=== PATIENT | male | born 1960 | race Caucasian/White ===

== ENCOUNTER 2022-01-17 13:17 | Inpatient (IN) | payer OTHER, SELFPAY ==
[2022-01-17] VITALS (8 sets, daily range): BP systolic 139–170; BP diastolic 65–89; PULSE 78–99; RESP 18–20; TEMP 36.6–37.1; O2SAT 91–94; BMI 27.9; BMI 28.4
--- NOTE | 2022-01-17 14:06 | RAD_ITS ---
STUDY: X-RAY CHEST REASON FOR EXAM: Male, 61 years old. Cough. Recent diagnosis of Covid. TECHNIQUE: Single AP portable view of the chest. COMPARISON: None. FINDINGS: EKG electrodes are seen. Bilateral pulmonary infiltrates in a preferential peripheral distribution worse in the left hemithorax. This is suggestive of pneumonitis associated with Covid.There is no demonstrated pleural abnormality. Normal size heart. Normal mediastinum and behzad. Normal visualized pulmonary arteries. Normal visualized aortic arch and descending thoracic aorta. There are diffuse degenerative changes of the visualized thoracic spine. Normal visualized ribs, clavicles, and shoulders. There is no demonstrated abnormality of the visualized soft tissue structures of the upper abdomen. RAD/Chest 1 View (Portable) IMPRESSION: Bilateral pulmonary infiltrates in the preferential peripheral distribution worse in the left hemithorax. This is in keeping with pneumonitis associated with Covid. Electronically Signed: Osman Parker MD at 15:17 EDT ,
--- NOTE | 2022-01-17 14:06 | CT_ITS ---
STUDY: CTA CHEST REASON FOR EXAM: Male, 61 years old. Respiratory failure RADIATION DOSAGE (If Supplied By Facility): CTDIvol = ( 11.68 ) mGy, DLP = ( 510.74 ) mGycm TECHNIQUE: The examination was performed with the intravenous administration of IV 100mL Isovue-370. Post-processing of the angiographic images was performed, with multiplanar reformation and 3D reconstruction. Individualized dose optimization techniques were used for this CT. COMPARISON: Comparison is made with prior chest radiograph done earlier today. FINDINGS: Multiple bilateral pulmonary emboli worse in the right lower lobe. Normal thoracic aorta and visualized great vessels. There is no demonstrated aortic dissection. There are calcifications of the coronary arteries. There are visualized mediastinal lymph nodes, which are within normal size limits, and with normal morphology. Enlargement of the bilateral hilar lymph nodes more prominent on the right side. Normal visualized trachea and bronchi. The lungs are well expanded. Diffuse bilateral pulmonary infiltrates involving both upper and lower lobes and both lungs in a preferential peripheral distribution. This is suggestive of pneumonitis associated with Covid. Normal pleura. Normal chest wall structures. Normal osseous structures. Moderate size hiatal hernia. CT/CTA Chest W/WO Contrast IMPRESSION: Diffuse bilateral pulmonary emboli worse in the right lower lobe. Diffuse bilateral pulmonary infiltrates in the preferential peripheral distribution suggestive of Covid pneumonitis. Electronically Signed: Osman Parker MD at 15:39 EDT ,
--- NOTE | 2022-01-17 14:22 | EX.ED.DYSGE1 ---
HPI History of Present Illness Chief Complaint: Fatigue Narrative Narrative: 61-year-old male presenting with chief complaint of fatigue. He states he had COVID-19 a couple of weeks ago in [place] where he lives. He states he was on the mend and came to visit family for January 16. The rest of his family kept getting better but he has been having fatigue. His fevers have resolved. He does not have body aches. He states that yesterday he felt great and ate well and then today has been rundown again. He is denying chest pain but does have some shortness of breath. No nausea or vomiting. He had an episode of diarrhea yesterday. He states he is hydrating enough there is making plenty of urine. Patient denies any leg pain or calf pain. No history of DVT/PE. [facility] Medical History Elevated triglycerides with high cholesterol HTN (hypertension) Seasonal allergies Home Medications cetirizine 10 mg tablet 10 mg PO DAILY allergies 01/17/22 [History Last Taken 01/17/22] fenofibrate 54 mg tablet 54 mg PO DAILY cholesterol 01/17/22 [History Last Taken 01/17/22] lisinopril 10 mg tablet 10 mg PO DAILY bp 01/17/22 [History Last Taken 01/17/22] Allergy/AdvReac Type Severity Reaction Status Date / Time erythromycin base Allergy Hives Verified 01/17/22 13:21 SEASONAL Allergy Rash Uncoded 01/17/22 13:21 Social History (Updated 01/17/22 @ 16:[address] Edy Mcrae DO) Smoking Status: Never smoker alcohol intake: current alcohol intake frequency: holidays/special occasions only substance use type: does not use ROS ROS ED Constitutional Constitutional ED: Denies chills or fever(s) Eyes Eyes: Denies change in vision ENT ENT ED: Denies rhinorrhea Cardiovascular Cardiovascular: Denies chest pain Respiratory/Chest Respiratory/Chest: Reports cough, dyspnea and dyspnea on exertion Gastrointestinal Gastrointestinal: Reports diarrhea; Denies abdominal pain or constipation Genitourinary Genitourinary ED: Denies dysuria or hematuria Musculoskeletal Musculoskeletal: Denies arthralgias Integumentary Denies Abrasions or rash Neurologic Neurologic: Denies headache(s) Psychiatric Psychiatric: Denies anxiety or depression EXAM Physical Exam Const Vital Signs: 01/17/22 13:18 01/17/22 13:54 01/17/22 13:54 Temperature 98 F Temperature Source Temporal Pulse Rate 99 Respiratory Rate 20 H Respiratory Effort Short of Breath Blood Pressure 170/89 H Blood Pressure Mean 116 Pulse Ox 91 Oxygen Delivery Method Room Air Room Air Oxygen Flow Rate (L/min) 01/17/22 15:54 01/17/22 16:02 Temperature 98 F Temperature Source Temporal Pulse Rate 94 94 Respiratory Rate 20 H Respiratory Effort Blood Pressure 150/84 H 150/84 H Blood Pressure Mean 106 Pulse Ox 92 92 Oxygen Delivery Method Nasal Cannula Nasal Cannula Oxygen Flow Rate (L/min) 4 4 Positive well nourished General Appearance ED: Negative for pallor HEENT Reports moist mucous membranes Eyes PERRL and EOMs intact bilaterally General Eye ED: Negative for pale conjunctiva or scleral icterus Chest Wall inspection of chest normal Resp Resp Narrative: Minimally tachypneic. Able to speak in full sentences. Auscultation: rales bilateral 1/3 way up Cardio regular rate and regular rhythm GI normal to inspection, nondistended, normoactive bowel sounds Extremity normal to inspection Neuro oriented x3 and CN's II-XII intact bilaterally Sensorium / Orientation: alert and orientation impaired Motor Exam: strength 5/5 throughout Psych mental status grossly normal Skin no rashes or lesions noted General Skin Exam: Negative for jaundice or pallor MDM MDM MDM Narrative Medical decision making narrative: Patient presenting with fatigue. He states he initially recovered from COVID-19 and is now steadily gotten worse. He is denying any chest pain but is having shortness of breath. Its noted that he is about 86% while talking to me in the room. He states that he is supposed to fly home tomorrow but just feels rundown. He states he had COVID a couple of weeks ago and initially recovered and now is not feeling as well. He is ambulated with pulse ox and desats to 75% and is very dyspneic. He was placed on oxygen after this. EKG on my interpretation shows normal sinus rhythm with a ventricular rate of 89 bpm without sign of ischemic change. CBC shows a slight leukocytosis of 12.9. Hemoglobin stable at 14. Renal function and electrolytes within normal limits. AST 125, ALT 128, alkaline phosphatase 270. This is likely due to his COVID-19 infection. High-sensitivity troponin is 18. Urinalysis negative for infection or urine ketones. Procalcitonin negative. Chest x-ray my interpretation shows bilateral pulmonary infiltrates consistent with COVID-19 pneumonitis. Due to recent travel from [place] and formerly [facility] COVID-19 infection I did obtain a CTA of the chest and this does show bilateral pulmonary emboli as well as pretty extensive COVID pneumonitis. Patient was treated with IV fluids and dexamethasone in the ED. Given that he is hypoxic with ambulation and has multiple PEs he will need to be admitted. I spoke with the hospitalist and the patient is transferred to the floor and stable condition. Impression: 1. COVID-19 pneumonitis 2. Hypoxic respiratory failure 3. Leukocytosis 4. Elevated LFTs 5. Bilateral pulmonary emboli Lab Data Attestation: I reviewed the patient's lab results. Labs: Laboratory Results - last 24 hr 01/17/22 01/17/22 01/17/22 14:25 14:32 14:32 WBC 12.9 H RBC 4.56 L Hgb 14.0 Hct 41.7 MCV 91.4 MCH 30.7 MCHC 33.6 RDW Std Deviation 45.4 H RDW Coeff of Alexandro 13.5 Plt Count 353 MPV 9.4 Immature Gran % (Auto) 0.900 Neut % (Auto) 89.4 H Lymph % (Auto) 5.4 L [place] % (Auto) 3.9 Eos % (Auto) 0.2 Baso % (Auto) 0.2 Absolute Neuts (auto) 11.5 H Absolute Lymphs (auto) 0.69 L Nucleated RBC % 0 Sodium 137 Potassium 4.1 Chloride 103 Carbon Dioxide 27.0 Anion Gap 7 BUN 5 L Creatinine 0.74 Estim Creat Clear Calc 108.24 Est GFR (MDRD) Af Amer 137 Est GFR (MDRD) Non-Af 114 BUN/Creatinine Ratio 6.7 L Glucose 102 Calcium 8.7 Total Bilirubin 0.60 AST 125 H ALT 128 H Alkaline Phosphatase 270 H Troponin I High Sens 18 Total Protein 7.7 Albumin 3.0 L Globulin 4.7 H Albumin/Globulin Ratio 0.6 L Procalcitonin Urine Color Straw Urine Clarity Clear Urine pH 7.0 Ur Specific [place] 1.005 Urine Protein Negative Urine Glucose (UA) Normal Urine Ketones Negative Urine Occult Blood 10 H Urine Nitrite Negative Urine Bilirubin Negative Urine Urobilinogen Normal Ur Leukocyte Esterase Negative Urine RBC 0-5 SEEN Urine WBC 0 SEEN Ur Squamous Epith Cells 0 SEEN Urine Bacteria 0 SEEN Urine Mucus 0 SEEN 01/17/22 14:32 WBC RBC Hgb Hct MCV MCH MCHC RDW Std Deviation RDW Coeff of Alexandro Plt Count MPV Immature Gran % (Auto) Neut % (Auto) Lymph % (Auto) [place] % (Auto) Eos % (Auto) Baso % (Auto) Absolute Neuts (auto) Absolute Lymphs (auto) Nucleated RBC % Sodium Potassium Chloride Carbon Dioxide Anion Gap BUN Creatinine Estim Creat Clear Calc Est GFR (MDRD) Af Amer Est GFR (MDRD) Non-Af BUN/Creatinine Ratio Glucose Calcium Total Bilirubin AST ALT Alkaline Phosphatase Troponin I High Sens Total Protein Albumin Globulin Albumin/Globulin Ratio Procalcitonin 0.05 Urine Color Urine Clarity Urine pH Ur Specific [place] Urine Protein Urine Glucose (UA) Urine Ketones Urine Occult Blood Urine Nitrite Urine Bilirubin Urine Urobilinogen Ur Leukocyte Esterase Urine RBC Urine WBC Ur Squamous Epith Cells Urine Bacteria Urine Mucus Radiography Diagnostic Testing: Clinical Impression(s) from Imaging Studies Chest CTA 01/17/22 14:06 IMPRESSION: Diffuse bilateral pulmonary emboli worse in the right lower lobe. Diffuse bilateral pulmonary infiltrates in the preferential peripheral distribution suggestive of Covid pneumonitis. Electronically Signed: Osman Parker MD at 15:39 EDT , Chest X-Ray 01/17/22 14:06 IMPRESSION: Bilateral pulmonary infiltrates in the preferential peripheral distribution worse in the left hemithorax. This is in keeping with pneumonitis associated with Covid. Electronically Signed: Osman Parker MD at 15:17 EDT , Discharge Plan Triage Chief Complaint: Fatigue ED Provider: Fei Stallworth Dx/Rx/DC Orders Primary Care Provider: JAISON HAYWOOD
[2022-01-17 14:37] LABS: Bacteria 0 SEEN /hpf (None Seen); Mucous, Urine 0 SEEN /hpf (<or=2+); Squamous Epithelial Cells - UA 0 SEEN /hpf (0-5); White Blood Cells 0 SEEN /hpf (0-5)
[2022-01-17 14:39] LABS: Absolute Lymphocyte Count 0.69 X10^3/uL (0.83-4.51); Absolute Neutrophil Count 11.5 X10^3/uL (2.0-7.7); Basophil# 0.03 X10^3/uL; Basophil% 0.2 % (0-1); Eosinophil# 0.03 X10^3/uL; Eosinophils% 0.2 % (0-5); Hematocrit 41.7 % (40-54); Lymphocyte # 0.69 X10^3/ul (0.83-4.51); Lymphocyte % 5.4 % (19-41); Mean Corp Hgb Conc 33.6 g/dL (32-36); Mean Corpuscular Hgb 30.7 pg (27.0-32.0); Mean Corpuscular Volume 91.4 fL (80-94); Mean Platelet Vol. 9.4 fl (6.2-12.0); Monocyte% 3.9 % (0-10); NRBC Flagged by Analyzer 0 % (0-5); Neutrophil # 11.52 X10^3/uL (2.7-7.7); Neutrophil % 89.4 % (47-70); Platelet Count 353 K/mm3 (150-450); RBC Distribution Width CV 13.5 % (11.6-14.6); RBC Distribution Width SD 45.4 fl (35.1-43.9); Red Blood Count 4.56 M/mm3 (4.6-6.2); White Blood Count 12.9 K/mm3 (4.4-11.0)
[2022-01-17] MEDS: dexAMETHasone 10 MG/ML Vial 6 MG IV (14:41)
[2022-01-17 14:47] LABS: Color, Urine Straw (Yellow); Glucose, Dipstick Normal (Normal); Ketone-Dipstick Negative (Negative); Leukocyte Esterase-Dipstick Negative /ul (Negative); Nitrite-Dipstick Negative (Negative); Occult Blood-Urine 10 /ul (Negative); Protein-Dipstick Negative (Negative); Specific Gravity, Urine 1.005 (1.002-1.030); Urine Bilirubin Dipstick Negative (Negative); Urine Clarity Clear (Clear); Urine Urobilinogen Normal (Normal)
[2022-01-17 14:55] LABS: Red Blood Cells-Urine 0-5 SEEN /hpf (0-5)
[2022-01-17 14:58] LABS: ALB/GLOB Ratio 0.6 RATIO (0.9-2.4); AST(SGOT) 125 U/L (15-37); Alanine Aminotransfer ALT/SGPT 128 U/L (16-61); Alkaline Phosphatase 270 U/L (45-117); Anion Gap 7 (5-15); BUN 5 mg/dL (7-18); BUN/Creat Ratio 6.7 RATIO (10-20); Calcium,Total 8.7 mg/dL (8.5-10.1); Chloride 103 mmol/L (98-107); Creatinine, Serum 0.74 mg/dL (0.70-1.30); EST Glomerular Filtration Rate 114 mL/min (>60); Est Glom Filt Rate - Afr Amer 137 mL/min (>60); Estimated Creatinine Clearance 108.24 ml/min; Globulin 4.7 g/dL (2.2-4.2); Glucose 102 mg/dL (74-106); Potassium 4.1 mmol/L (3.5-5.1); Protein, Total 7.7 g/dL (6.4-8.2); Sodium Level 137 mmol/L (136-145); Troponin-I HS 18 pg/mL (3.0-78.0)
[2022-01-17 15:27] LABS: Procalcitonin 0.05 ng/mL (0.00-0.09)
--- NOTE | 2022-01-17 16:32 | HP.PCM.HOS_ITS ---
HPI - General General Date of Admission: 01/17/22 Date of Service: 01/17/22 Chief Complaint: shortness of breath HPI Narrative JANEL MILLER, is a 61 M who presents with shortness of breath. Patient had developed COVID-19 on January 04. [place] fine and then came to [place] to visit family in the [place] area. But patient has steadily become more short of breath. Patient was able to help out around the house but today was very short of breath and unable to stand. She presented to the emergency room where his pulse ox has been okay but when he is got up to ambulate and dropped down to 75%. Patient had a CT angiogram of the chest that showed bilateral pulmonary infiltrates consistent with COVID-19 as well as bilateral pulmonary emboli. Patient is unvaccinated for COVID-19. Patient's daughter and granddaughter both had COVID-19 around the same time he did in both came on his trip to [place] from [place] they have both been vaccinated and are planning on returning to [place] in the near future. [facility] Medical History Elevated triglycerides with high cholesterol HTN (hypertension) Seasonal allergies Home Medications cetirizine 10 mg tablet 10 mg PO DAILY allergies 01/17/22 [History Last Taken 01/17/22] fenofibrate 54 mg tablet 54 mg PO DAILY cholesterol 01/17/22 [History Last Taken 01/17/22] lisinopril 10 mg tablet 10 mg PO DAILY bp 01/17/22 [History Last Taken 01/17/22] Allergy/AdvReac Type Severity Reaction Status Date / Time erythromycin base Allergy Hives Verified 01/17/22 13:21 SEASONAL Allergy Rash Uncoded 01/17/22 13:21 Social History (Updated 01/17/22 @ 16:[address] Eyd Mcrae DO) Smoking Status: Never smoker alcohol intake: current alcohol intake frequency: holidays/special occasions only substance use type: does not use ROS ROS Narrative Decreased smell but taste has been unchanged. No chills. Did have some transient diarrhea but that is resolved. All review of systems were negative e xcept as mentioned above in the history of present illness and the other review of systems. Vital Signs Vital Signs Vital Signs: 01/17/22 13:18 01/17/22 13:54 01/17/22 13:54 Temperature 36.6 C Temperature Source Temporal Pulse Rate 99 Respiratory Rate 20 H Respiratory Effort Short of Breath Blood Pressure 170/89 H Blood Pressure Mean 116 Pulse Ox 91 Oxygen Delivery Method Room Air Room Air Oxygen Flow Rate (L/min) 01/17/22 15:54 01/17/22 16:02 Temperature 36.6 C Temperature Source Temporal Pulse Rate 94 94 Respiratory Rate 20 H Respiratory Effort Blood Pressure 150/84 H 150/84 H Blood Pressure Mean 106 Pulse Ox 92 92 Oxygen Delivery Method Nasal Cannula Nasal Cannula Oxygen Flow Rate (L/min) 4 4 Weight Weight: 88.451 kg Body Mass Index (BMI) 27.9 Physical Exam Const alert and no apparent distress HEENT normocephalic, head/scalp atraumatic and hearing grossly normal bilaterally Resp normal respiratory effort and no retractions Resp Narrative: Bibasilar crackles Cardio regular rate, regular rhythm, S1 normal heart sound and S2 normal heart sound GI normal to inspection, nondistended, normoactive bowel sounds, soft to palpation, non-tender and non-distended Extremity normal to inspection and no clubbing, cyanosis or edema Neuro oriented x3 Sensorium / Orientation: awake and alert Psych affect normal Results Lab / Micro Data Attestation: I reviewed the patient's lab results. Result Diagrams: 01/17/22 14:32 01/17/22 14:32 Labs: Laboratory Results - last 24 hr 01/17/22 14:25: Urine Color Straw, Urine Clarity Clear, Urine pH 7.0, Ur Specific [place] 1.005, Urine Protein Negative, Urine Glucose (UA) Normal, Urine Ketones Negative, Urine Occult Blood 10 H, Urine Nitrite Negative, Urine Bilirubin Negative, Urine Urobilinogen Normal, Ur Leukocyte Esterase Negative, Urine RBC 0-5 SEEN, Urine WBC 0 SEEN, Ur Squamous Epith Cells 0 SEEN, Urine Ba cteria 0 SEEN, Urine Mucus 0 SEEN 01/17/22 14:32: WBC 12.9 H, RBC 4.56 L, Hgb 14.0, Hct 41.7, MCV 91.4, MCH 30.7, MCHC 33.6, RDW Std Deviation 45.4 H, RDW Coeff of Alexandro 13.5, Plt Count 353, MPV 9.4, Immature Gran % (Auto) 0.900, Neut % (Auto) 89.4 H, Lymph % (Auto) 5.4 L, [place] % (Auto) 3.9, Eos % (Auto) 0.2, Baso % (Auto) 0.2, Absolute Neuts (auto) 11.5 H, Absolute Lymphs (auto) 0.69 L, Nucleated RBC % 0 01/17/22 14:32: Sodium 137, Potassium 4.1, Chloride 103, Carbon Dioxide 27.0, Anion Gap 7, BUN 5 L, Creatinine 0.74, Estim Creat Clear Calc 108.24, Est GFR (MDRD) Af Amer 137, Est GFR (MDRD) Non-Af 114, BUN/Creatinine Ratio 6.7 L, Glucose 102, Calcium 8.7, Total Bilirubin 0.60, AST 125 H, ALT 128 H, Alkaline Phosphatase 270 H, Troponin I High Sens 18, Total Protein 7.7, Albumin 3.0 L, Globulin 4.7 H, Albumin/Globulin Ratio 0.6 L 01/17/22 14:32: Procalcitonin 0.05 Micro: Microbiology 01/17/22 14:20 Nasal Secretion SARS-CoV-2 Antigen (Rapid) - Final Radiology Impression Chest CTA 01/17/22 14:06 IMPRESSION: Diffuse bilateral pulmonary emboli worse in the right lower lobe. Diffuse bilateral pulmonary infiltrates in the preferential peripheral distribution suggestive of Covid pneumonitis. Electronically Signed: Osman Parker MD at 15:39 EDT , Chest X-Ray 01/17/22 14:06 IMPRESSION: Bilateral pulmonary infiltrates in the preferential peripheral distribution worse in the left hemithorax. This is in keeping with pneumonitis associated with Covid. Electronically Signed: Osman Parker MD at 15:17 EDT , Assessment & Plan Assessment/Plan (1) Acute respiratory failure with hypoxia: PLAN: Secondary to COVID-19 and pulmonary emboli Currently patient is stable on nasal cannula. Given the history of COVID-19 and being unvaccinated is unclear to me if this is the worse or if he may continue to worsen. I told the patient and his daughter over the phone and that we would monitor him in the hospital for the next couple days to ensure that he is improving. The patient can remain stable and we can consider discharging him home. The complicating factor is that [place]. He does have family that he can stay with so it may be advisable for him to return home with family particular if he requires oxygen. (2) COVID-19: PLAN: Onset is January 04 The patient is natural history is consistent with what we are seeing with the delta variant in unvaccinated patients. And this was explained to the patient. Patient is out of the window for remdesivir Continue with dexamethasone If patient worsens, consider infectious disease consult to see if we can use tocilizumab. I did speak with pharmacy and we do have several vials. (3) Pulmonary emboli: PLAN: Most likely due to COVID-19 but his recent travel may also be contributing factor. He does not smoke or take any hormone therapy. Start him on apixaban. I would anticipate 6-month course of anticoagulation. PLAN: Plan VTE prophylaxis not indicated as he is already on anticoagulation. Case discussed with the patient's daughter over the phone. Charges/Coding Visit Charges Inpatient E&M: 34244 Init Hosp L3
--- NOTE | 2022-01-17 16:33 | EKG12_ITS ---
Test Reason : SOB Blood Pressure : / mmHG Vent. Rate : 089 BPM Atrial Rate : 089 BPM P-R Int : 152 ms QRS Dur : 098 ms QT Int : 342 ms P-R-T Axes : 015 -07 -12 degrees QTc Int : 416 ms Normal sinus rhythm Normal ECG Confirmed by HERMILA HORTA, KAYLYNN ([id number]), commercial production editor TANYA MOORE ([id number]) on 01/19/2022 9:04:11 AM Referred By: SYLVAIN Confirmed By:KAYLYNN CLEANING MD
--- NOTE | 2022-01-17 18:00 | ECHOD_ITS ---
Reason For Study: Bilateral PE Procedure This was a 2D Doppler, Color Flow transthoracic echocardiogram. The exam was of adequate technical quality. Exam performed portable in patient room. The exam was abbreviated due to the COVID 19 protocol. Left Ventricle Normal LV size. Left ventricular systolic function is normal. The estimated ejection fraction is 65 %. Unable to assess diastolic dysfunction. No regional wall motion abnormalities noted. Right Ventricle Normal RV size. Normal systolic function. Atria The left atrium is mildly enlarged. Normal right atrium. No doppler evidence for ASD. Mitral Valve There is mild mitral annular calcification. Normal mitral valve. Trivial mitral valve insufficiency. Tricuspid Valve Normal tricuspid valve. Mild tricuspid valve insufficiency. Right ventricular systolic pressure estimated to be 50 mmHg. Aortic Valve Trisinus/trileaflet aortic valve. Normal aortic valve. Pulmonic Valve The pulmonic valve is not well visualized. Great Vessels The aortic root is not well visualized. Pericardium/Pleural No pericardial effusion. MMode/2D Measurements & Calculations LVIDd: 5.5 cm IVSd: 0.95 cm LA dimension: 4.1 cm LVIDs: 3.0 cm LVPWd: 0.81 cm RVDd: 4.8 cm FS: 44.4 % LAV(MOD-bp): 84.5 ml LA A4 area: 26.8 cm2 RA A4 area: 18.3 cm2 LAV(MOD-bp) Indexed: 41.0 ml/m2 LAV(MOD-sp2): 66.2 ml LAV(MOD-sp4): 85.2 ml Doppler Measurements & Calculations Lat Peak E' Adalberto: 9.7 cm/sec Med Peak E' Adalberto: 12.0 cm/sec TR max adalberto: 325.4 cm/sec TR max P.4 mmHg ECHO/Echo Complete Interpretation Summary Left ventricular systolic function is normal. The estimated ejection fraction is 65 %. The left atrium is mildly enlarged. There is mild mitral annular calcification. Trivial mitral valve insufficiency. Mild tricuspid valve insufficiency. Right ventricular systolic pressure estimated to be 50 mmHg c/w pulmonary hyper tension. Unable to assess diastolic dysfunction. Ordering Physician: Edy Mcrae Referring Physician: Out of Town Doctor Performed By: Prince Mariano RCS
[2022-01-17] MEDS: APIXABAN 5 MG TABLET 10 MG PO (21:09)
[2022-01-18] VITALS (14 sets, daily range): BP systolic 120–135; BP diastolic 65–85; PULSE 65–79; RESP 18; TEMP 36.4–36.9; O2SAT 89–96
[2022-01-18 04:14] LABS: Absolute Lymphocyte Count 0.54 X10^3/uL (0.83-4.51); Absolute Neutrophil Count 7.1 X10^3/uL (2.0-7.7); Basophil# 0.02 X10^3/uL; Basophil% 0.2 % (0-1); Hematocrit 37.3 % (40-54); Hemoglobin 12.7 g/dL (13.0-16.5); Lymphocyte # 0.54 X10^3/ul (0.83-4.51); Lymphocyte % 6.7 % (19-41); Mean Corpuscular Hgb 30.8 pg (27.0-32.0); Mean Corpuscular Volume 90.3 fL (80-94); Mean Platelet Vol. 9.6 fl (6.2-12.0); Monocyte# 0.34 X10^3/uL; Monocyte% 4.2 % (0-10); NRBC Flagged by Analyzer 0 % (0-5); Neutrophil # 7.11 X10^3/uL (2.7-7.7); Neutrophil % 87.9 % (47-70); POSITIVE DIFFERENTIAL YES; Platelet Count 300 K/mm3 (150-450); RBC Distribution Width CV 13.4 % (11.6-14.6); RBC Distribution Width SD 44.7 fl (35.1-43.9); Red Blood Count 4.13 M/mm3 (4.6-6.2); White Blood Count 8.1 K/mm3 (4.4-11.0)
[2022-01-18 04:17] LABS: Differential Indicated SCAN CRITERIA MET
[2022-01-18 04:39] LABS: ALB/GLOB Ratio 0.6 RATIO (0.9-2.4); AST(SGOT) 55 U/L (15-37); Alanine Aminotransfer ALT/SGPT 92 U/L (16-61); Albumin, Serum 2.4 g/dL (3.2-5.0); Alkaline Phosphatase 216 U/L (45-117); Anion Gap 7 (5-15); BUN 10 mg/dL (7-18); BUN/Creat Ratio 16.4 RATIO (10-20); Calcium,Total 8.7 mg/dL (8.5-10.1); Chloride 107 mmol/L (98-107); Creatinine, Serum 0.61 mg/dL (0.70-1.30); EST Glomerular Filtration Rate 142 mL/min (>60); Est Glom Filt Rate - Afr Amer 172 mL/min (>60); Estimated Creatinine Clearance 131.31 ml/min; Globulin 4.2 g/dL (2.2-4.2); Glucose 148 mg/dL (74-106); Potassium 4.5 mmol/L (3.5-5.1); Protein, Total 6.6 g/dL (6.4-8.2); Sodium Level 138 mmol/L (136-145)
[2022-01-18 05:00] LABS: Differential Comment SCANNED
--- NOTE | 2022-01-18 08:31 | PN.HOSP_ITS ---
Subjective Subjective Breathing well. Feels much better with the oxygen. Objective Data Objective Data Vital Signs: Vital Signs Temp Pulse Resp BP Pulse Ox O2 Del Method O2 Flow Rate 36.9 C 65 18 123/65 H 93 Nasal Cannula 5 01/18/22 05:26 01/18/22 07:00 01/18/22 05:26 01/18/22 05:26 01/18/22 07:24 01/18/22 07:24 01/18/22 07:24 Oxygen Flow Rate (L/min) 5 Oxygen Delivery Method Nasal Cannula Weight: 89.811 kg Body Mass Index (BMI) 28.4 Intake & Output: Intake and Output for Last 24 Hours 01/16/22 01/17/22 01/18/22 23:59 23:59 23:59 Intake Total 1580 / 1580 Balance 1580 / 1580 Lab / Micro Data Result Diagrams: 01/18/22 04:06 01/18/22 04:06 Labs: Laboratory Results - last 24 hr 01/17/22 14:25: Urine Color Straw, Urine Clarity Clear, Urine pH 7.0, Ur Specific [place] 1.005, Urine Protein Negative, Urine Glucose (UA) Normal, Urine Ketones Negative, Urine Occult Blood 10 H, Urine Nitrite Negative, Urine Bilirubin Negative, Urine Urobilinogen Normal, Ur Leukocyte Esterase Negative, Urine RBC 0-5 SEEN, Urine WBC 0 SEEN, Ur Squamous Epith Cells 0 SEEN, Urine Bacteria 0 SEEN, Urine Mucus 0 SEEN 01/17/22 14:32: WBC 12.9 H, RBC 4.56 L, Hgb 14.0, Hct 41.7, MCV 91.4, MCH 30.7, MCHC 33.6, RDW Std Deviation 45.4 H, RDW Coeff of Alexandro 13.5, Plt Count 353, MPV 9.4, Immature Gran % (Auto) 0.900, Neut % (Auto) 89.4 H, Lymph % (Auto) 5.4 L, [place] % (Auto) 3.9, Eos % (Auto) 0.2, Baso % (Auto) 0.2, Absolute Neuts (auto) 11.5 H, Absolute Lymphs (auto) 0.69 L, Nucleated RBC % 0 01/17/22 14:32: Sodium 137, Potassium 4.1, Chloride 103, Carbon Dioxide 27.0, Anion Gap 7, BUN 5 L, Creatinine 0.74, Estim Creat Clear Calc 108.24, Est GFR (MDRD) Af Amer 137, Est GFR (MDRD) Non-Af 114, BUN/Creatinine Ratio 6.7 L, Glucose 102, Calcium 8.7, Total Bilirubin 0.60, AST 125 H, ALT 128 H, Alkaline Phosphatase 270 H, Troponin I High Sens 18, Total Protein 7.7, Albumin 3.0 L, Globulin 4.7 H, Albumin/Globulin Ratio 0.6 L 01/17/22 14:32: Procalcitonin 0.05 01/17/22 14:52: COVID-19 (JOVON) Not Detected 01/18/22 04:06: WBC 8.1, RBC 4.13 L, Hgb 12.7 L, Hct 37.3 L, MCV 90.3, MCH 30.8, MCHC 34.0, RDW Std Deviation 44.7 H, RDW Coeff of Alexandro 13.4, Plt Count 300, MPV 9.6, Immature Gran % (Auto) 1.000 H, Neut % (Auto) 87.9 H, Lymph % (Auto) 6.7 L, [place] % (Auto) 4.2, Eos % (Auto) 0.0, Baso % (Auto) 0.2, Absolute Neuts (auto) 7.1, Absolute Lymphs (auto) 0.54 L, Nucleated RBC % 0, Differential Comment SCANNED 01/18/22 04:06: Sodium 138, Potassium 4.5, Chloride 107, Carbon Dioxide 24.0, Anion Gap 7, BUN 10, Creatinine 0.61 L, Estim Creat Clear Calc 131.31, Est GFR (MDRD) Af Amer 172, Est GFR (MDRD) Non-Af 142, BUN/Creatinine Ratio 16.4, Glucose 148 H, Calcium 8.7, Total Bilirubin 0.40, AST 55 H, ALT 92 H, Alkaline Phosphatase 216 H, Total Protein 6.6, Albumin 2.4 L, Globulin 4.2, Albumin/Globulin Ratio 0.6 L Micro: Microbiology 01/17/22 14:20 Nasal Secretion SARS-CoV-2 Antigen (Rapid) - Final Radiography Diagnostic Testing: Radiology Impression Chest CTA 01/17/22 14:06 IMPRESSION: Diffuse bilateral pulmonary emboli worse in the right lower lobe. Diffuse bilateral pulmonary infiltrates in the preferential peripheral distribution suggestive of Covid pneumonitis. Electronically Signed: Osman Parker MD at 15:39 EDT , Chest X-Ray 01/17/22 14:06 IMPRESSION: Bilateral pulmonary infiltrates in the preferential peripheral distribution worse in the left hemithorax. This is in keeping with pneumonitis associated with Covid. Electronically Signed: Osman Parker MD at 15:17 EDT , Physical Exam Const alert and no apparent distress Resp normal respiratory effort and no retractions Resp Narrative: Bibasilar crackles Cardio regular rate, regular rhythm, S1 normal heart sound and S2 normal heart sound Extremity normal to inspection Psych affect normal Assessment & Plan Assessment/Plan (1) Acute respiratory failure with hypoxia: PLAN: Secondary to COVID-19 and pulmonary emboli Currently patient is stable on nasal cannula. Given the history of COVID-19 and being unvaccinated is unclear to me if this is the worse or if he may continue to worsen. I told the patient and his daughter over the phone and that we would monitor him in the hospital for the next couple days to ensure that he is improving. The patient can remain stable and we can consider discharging him home. The complicating factor is that [place]. He does have family that he can stay with so it may be advisable for him to return home with family particular if he requires oxygen. Currently on 5 L nasal cannula. Wean oxygen as tolerated Add incentive spirometer (2) COVID-19: PLAN: Onset is January 04 The patient is natural history is consistent with what we are seeing with the delta variant in unvaccinated patients. And this was explained to the patient. Patient is out of the window for remdesivir Continue with dexamethasone If patient worsens, consider infectious disease consult to see if we can use tocilizumab. I did speak with pharmacy and we do have several vials. Rapid as well as PCR for COVID were negative here. But patient had confirmed testing in [place]. I do still feel that his changes are consistent with COVID-19 but will evaluate for any secondary bacterial infections. (3) Pulmonary emboli: PLAN: Most likely due to COVID-19 but his recent travel may also be contributing factor from [place]. He does not smoke or take any hormone therapy. Start him on apixaban. I would anticipate 6-month course of anticoagulation as patient has no prior history of VTE. Follow-up echocardiogram for any evidence of cardiac strain. Patient asked about systemic anticoagulation with heparin drip or enoxaparin as this was brought up to him by his acquaintances who are physicians who inquired about it.. I told patient that he is being properly anticoagulated with anticoagulation and given his hemodynamics stability, despite his hypoxia, I feel that is appropriate for the 10 a inhibitor with apixaban. PLAN: Plan VTE prophylaxis not indicated as he is already on anticoagulation. Case discussed with the patient's daughter over the phone 01/17. Of note, his daughter and granddaughter contracted COVID-19 at the same time he did, are doing well, but they both been vaccinated.. Charges/Coding Visit Charges Inpatient E&M: 87514 Subs Hosp L2
[2022-01-18] MEDS: Menthol/Lanolin/Calamine/Znox 113 GM Tube 1 APPLIC TOPICAL ×2 (08:56→21:55)
[2022-01-18] MEDS: dexAMETHasone 10 MG/ML Vial 6 MG IV (09:00)
[2022-01-18] MEDS: APIXABAN 5 MG TABLET 10 MG PO ×2 (09:00→21:54)
[2022-01-18] MEDS: 0.9% Saline Lock 10 ML Syringe IV (09:02)
--- NOTE | 2022-01-18 11:54 | CASEMGMT ---
LUNA IZAGUIRRE assessment: Initial transition planning/care coordination assessment. LUNA IZAGUIRRE introduced self and role at [facility], pt voices understanding and consents to assessment. Pt is A/Ox4 and answers all questions appropriately. Pt is in no distress on 5L nc.? Care providers, pharmacy,?and demographics verified. ? Presentation: Pt was dx'd w/ COVID 2 weeks ago, c/o increased weak/fatigue, cough, SOB-pt traveled from [place] to [place] for 01/16 holiday Admitting dx: COVID, PE PCP: Jan-out of state Specialists: None Preferred Pharmacy: [facility] Insurance: [facility] Prescription Benefit:?[place] Living Will/HPOA: Pt states does not have LW/HPOA and states he plans to complete AD's once he returns to [place]. LNOK: Keli Simpson, daughter Living Arrangements: Pt lives alone in and states no concerns at home. Pt is independent with ADL's. Pt states daughter lives close. Transportation: Pt drives self and states no transportation concerns. DME/HHC: Pt has no current DME and will be provided with pulse ox from [facility] at discharge. Pt states no preference on DME company, if qualifies for home oxygen and states no need for any further DME. Pt states no hx of HHC or SNF in past. Pt states no concerns with going home at time of discharge. Pt is retired. Pt states does not smoke cigarettes but does socially drink ETOH. Pt voices no further concerns/needs. CM to follow for home oxygen testing, therapy notes, and any further discharge planning/needs. Advised pt to ask for CM if any further questions/concerns/needs arise, voices understanding. Pt Goal: Home ? Plan: [place] LUNA IZAGUIRRE
[2022-01-19] VITALS (17 sets, daily range): BP systolic 127–146; BP diastolic 77–91; PULSE 58–83; RESP 18–20; TEMP 36.4–36.8; O2SAT 90–97
--- NOTE | 2022-01-19 04:11 | NURSING ---
01/18/22: pt spO2 reading was 88-89% on 5L nc @ around 2019. O2 increased to 8L high flow and saturation went up to 93%. Around 2139, his spO2 was at 96% on 8L O2, pt weaned to 7L high flow w/ 95% saturation. 01/19/22: @0350, spO2 of 97% on 7L O2, weaned to 6L w/ 95% saturation. -will continue to work on weaning O2 down.
[2022-01-19] MEDS: guaiFENesin 1,200 MG Tablet 1200 MG PO ×3 (04:50→21:01)
[2022-01-19 06:59] LABS: Absolute Lymphocyte Count 1.09 X10^3/uL (0.83-4.51); Absolute Neutrophil Count 9.1 X10^3/uL (2.0-7.7); Basophil# 0.03 X10^3/uL; Basophil% 0.3 % (0-1); Eosinophil# 0.02 X10^3/uL; Eosinophils% 0.2 % (0-5); Hematocrit 37.7 % (40-54); Hemoglobin 12.5 g/dL (13.0-16.5); Lymphocyte # 1.09 X10^3/ul (0.83-4.51); Mean Corp Hgb Conc 33.2 g/dL (32-36); Mean Corpuscular Hgb 30.8 pg (27.0-32.0); Mean Corpuscular Volume 92.9 fL (80-94); Mean Platelet Vol. 9.9 fl (6.2-12.0); Monocyte# 0.56 X10^3/uL; Monocyte% 5.2 % (0-10); NRBC Flagged by Analyzer 0 % (0-5); Neutrophil # 9.05 X10^3/uL (2.7-7.7); Neutrophil % 83.3 % (47-70); Platelet Count 311 K/mm3 (150-450); RBC Distribution Width CV 13.5 % (11.6-14.6); RBC Distribution Width SD 45.3 fl (35.1-43.9); Red Blood Count 4.06 M/mm3 (4.6-6.2); White Blood Count 10.9 K/mm3 (4.4-11.0)
[2022-01-19 07:34] LABS: ALB/GLOB Ratio 0.6 RATIO (0.9-2.4); AST(SGOT) 88 U/L (15-37); Alanine Aminotransfer ALT/SGPT 148 U/L (16-61); Albumin, Serum 2.4 g/dL (3.2-5.0); Alkaline Phosphatase 187 U/L (45-117); Anion Gap 7 (5-15); BUN 16 mg/dL (7-18); BUN/Creat Ratio 26.4 RATIO (10-20); Calcium,Total 8.1 mg/dL (8.5-10.1); Chloride 106 mmol/L (98-107); Creatinine, Serum 0.61 mg/dL (0.70-1.30); EST Glomerular Filtration Rate 144 mL/min (>60); Est Glom Filt Rate - Afr Amer 174 mL/min (>60); Estimated Creatinine Clearance 131.31 ml/min; Globulin 3.9 g/dL (2.2-4.2); Glucose 113 mg/dL (74-106); Potassium 4.7 mmol/L (3.5-5.1); Protein, Total 6.3 g/dL (6.4-8.2); Sodium Level 136 mmol/L (136-145)
--- NOTE | 2022-01-19 08:02 | PN.HOSP_ITS ---
Subjective Subjective Feels well. SCOTT ongoing. Objective Data Objective Data Vital Signs: Vital Signs Temp Pulse Resp BP Pulse Ox O2 Del Method O2 Flow Rate 36.6 C 70 18 131/79 H 93 Nasal Cannula 6 01/19/22 03:56 01/19/22 07:00 01/19/22 03:58 01/19/22 03:56 01/19/22 07:14 01/19/22 07:14 01/19/22 07:14 Oxygen Flow Rate (L/min) 6 Oxygen Delivery Method Nasal Cannula Weight: 89.811 kg Body Mass Index (BMI) 28.4 Intake & Output: Intake and Output for Last 24 Hours 01/17/22 01/18/22 01/19/22 23:59 23:59 23:59 Intake Total 1580 / 1580 480 / 480 Balance 1580 / 1580 480 / 480 Lab / Micro Data Result Diagrams: 01/19/22 05:43 01/19/22 05:43 Labs: Laboratory Results - last 24 hr 01/19/22 05:43: WBC 10.9, RBC 4.06 L, Hgb 12.5 L, Hct 37.7 L, MCV 92.9, MCH 30.8, MCHC 33.2, RDW Std Deviation 45.3 H, RDW Coeff of Alexandro 13.5, Plt Count 311, MPV 9.9, Immature Gran % (Auto) 1.000 H, Neut % (Auto) 83.3 H, Lymph % (Auto) 10.0 L, [place] % (Auto) 5.2, Eos % (Auto) 0.2, Baso % (Auto) 0.3, Absolute Neuts (auto) 9.1 H, Absolute Lymphs (auto) 1.09, Nucleated RBC % 0 01/19/22 05:43: Sodium 136, Potassium 4.7, Chloride 106, Carbon Dioxide 23.0, Anion Gap 7, BUN 16, Creatinine 0.61 L, Estim Creat Clear Calc 131.31, Est GFR (MDRD) Af Amer 174, Est GFR (MDRD) Non-Af 144, BUN/Creatinine Ratio 26.4 H, Glucose 113 H, Calcium 8.1 L, Total Bilirubin 0.30, AST 88 H, ALT 148 H, Alkaline Phosphatase 187 H, Total Protein 6.3 L, Albumin 2.4 L, Globulin 3.9, Albumin/Globulin Ratio 0.6 L Micro: Microbiology 01/17/22 14:45 Blood Culture (Wb) - Anticubital Left Blood Culture - Preliminary No growth in 48 hours. 01/17/22 14:32 Blood Culture (Wb) - Anticubital Left Blood Culture - Preliminary No growth in 48 hours. 01/17/22 14:21 Urine, Clean Catch Streptococcus pneumoniae Antigen (M - Final 01/17/22 14:21 Urine, Clean Catch Legionella Antigen - Final 01/18/22 09:00 Stool Enteric Bacteriology - Final 01/18/22 09:00 Stool C. difficile DNA Amplification - Final 01/17/22 14:20 Nasal Secretion SARS-CoV-2 Antigen (Rapid) - Final Radiography Diagnostic Testing: Radiology Impression Echocardiogram 01/17/22 18:00 Interpretation Summary Left ventricular systolic function is normal. The estimated ejection fraction is 65 %. The left atrium is mildly enlarged. There is mild mitral annular calcification. Trivial mitral valve insufficiency. Mild tricuspid valve insufficiency. Right ventricular systolic pressure estimated to be 50 mmHg c/w pulmonary hyp ertension. Unable to assess diastolic dysfunction. Ordering Physician: Edy Mcrae Referring Physician: Out of Town Doctor Performed By: Prince Mariano RCS Physical Exam Const alert and no apparent distress Resp normal respiratory effort, no retractions, no use of accessory muscles and clear to auscultation bilaterally Cardio regular rate, regular rhythm, S1 normal heart sound and S2 normal heart sound GI normal to inspection, nondistended, normoactive bowel sounds and soft to palpation Assessment & Plan Assessment/Plan (1) Acute respiratory failure with hypoxia: PLAN: Secondary to COVID-19 and pulmonary emboli Currently patient is stable on nasal cannula. Given the history of COVID-19 and being unvaccinated is unclear to me if this is the worse or if he may continue to worsen. I told the patient and his daughter over the phone and that we would monitor him in the hospital for the next couple days to ensure that he is improving. The patient can remain stable and we can consider discharging him home. The complicating factor is that he is from [place]. He does have family that he can stay with so it may be advisable for him to return home with family particular if he requires oxygen. Currently on 6 L nasal cannula. Wean oxygen as tolerated Add incentive spirometer Furosemide challenge (2) COVID-19: PLAN: Onset is January 04 The patient is natural history is consistent with what we are seeing with the delta variant in unvaccinated patients. And this was explained to the patient. Patient is out of the window for remdesivir Continue with dexamethasone If patient worsens, consider infectious disease consult to see if we can use tocilizumab. I did speak with pharmacy and we do have several vials. Rapid as well as PCR for COVID were negative here. But patient had confirmed testing in [place]. I do still feel that his changes are consistent with COVID-19 but will evaluate for any secondary bacterial infections. (3) Pulmonary emboli: PLAN: Most likely due to COVID-19 but his recent travel may also be contributing factor from [place]. He does not smoke or take any hormone therapy. Start him on apixaban. I would anticipate 6-month course of anticoagulation as patient has no prior history of VTE. Follow-up echocardiogram for any evidence of cardiac strain. Patient asked about systemic anticoagulation with heparin drip or enoxaparin as this was brought up to him by his acquaintances who are physicians who inquired about it.. I told patient that he is being properly anticoagulated with anticoagulation and given his hemodynamics stability, despite his hypoxia, I feel that is appropriate for the 10 a inhibitor with apixaban. PLAN: Plan VTE prophylaxis not indicated as he is already on anticoagulation. Case discussed with the patient's daughter over the phone 01/17. Of note, his daughter and granddaughter contracted COVID-19 at the same time he did, are doing well, but they both been vaccinated.. Charges/Coding Visit Charges Inpatient E&M: 89373 Subs Hosp L2
[2022-01-19] MEDS: dexAMETHasone 10 MG/ML Vial 6 MG IV (08:42)
[2022-01-19] MEDS: APIXABAN 5 MG TABLET 10 MG PO ×2 (08:42→21:02)
[2022-01-19] MEDS: 0.9% Saline Lock 10 ML Syringe IV (08:43)
[2022-01-19] MEDS: Menthol/Lanolin/Calamine/Znox 113 GM Tube 1 APPLIC TOPICAL ×2 (08:47→21:02)
[2022-01-20] VITALS (10 sets, daily range): BP systolic 117–146; BP diastolic 63–92; PULSE 57–84; RESP 18–20; TEMP 36.5–36.8; O2SAT 83–95
[2022-01-20 06:48] LABS: Absolute Lymphocyte Count 1.58 X10^3/uL (0.83-4.51); Absolute Neutrophil Count 9.3 X10^3/uL (2.0-7.7); Basophil# 0.02 X10^3/uL; Basophil% 0.2 % (0-1); Eosinophil# 0.03 X10^3/uL; Eosinophils% 0.3 % (0-5); Hematocrit 38.6 % (40-54); Hemoglobin 12.9 g/dL (13.0-16.5); Lymphocyte # 1.58 X10^3/ul (0.83-4.51); Lymphocyte % 13.6 % (19-41); Mean Corp Hgb Conc 33.4 g/dL (32-36); Mean Corpuscular Hgb 29.9 pg (27.0-32.0); Mean Corpuscular Volume 89.6 fL (80-94); Mean Platelet Vol. 9.7 fl (6.2-12.0); Monocyte# 0.67 X10^3/uL; Monocyte% 5.8 % (0-10); NRBC Flagged by Analyzer 0 % (0-5); Neutrophil # 9.25 X10^3/uL (2.7-7.7); Neutrophil % 79.4 % (47-70); Platelet Count 315 K/mm3 (150-450); RBC Distribution Width CV 13.2 % (11.6-14.6); RBC Distribution Width SD 43.9 fl (35.1-43.9); Red Blood Count 4.31 M/mm3 (4.6-6.2); White Blood Count 11.6 K/mm3 (4.4-11.0)
[2022-01-20 07:12] LABS: Anion Gap 9 (5-15); BUN 16 mg/dL (7-18); BUN/Creat Ratio 21.8 RATIO (10-20); Calcium,Total 8.4 mg/dL (8.5-10.1); Chloride 105 mmol/L (98-107); Creatinine, Serum 0.73 mg/dL (0.70-1.30); EST Glomerular Filtration Rate 115 mL/min (>60); Est Glom Filt Rate - Afr Amer 140 mL/min (>60); Estimated Creatinine Clearance 109.72 ml/min; Glucose 108 mg/dL (74-106); Potassium 4.3 mmol/L (3.5-5.1); Sodium Level 138 mmol/L (136-145)
--- NOTE | 2022-01-20 08:10 | PN.HOSP_ITS ---
Subjective Subjective Breathing better. Objective Data Objective Data Vital Signs: Vital Signs Temp Pulse Resp BP Pulse Ox O2 Del Method O2 Flow Rate 36.6 C 60 18 137/77 H 92 Nasal Cannula 5 01/20/22 03:07 01/20/22 07:00 01/20/22 03:07 01/20/22 03:07 01/20/22 07:14 01/20/22 07:14 01/20/22 07:14 FiO2 91 01/19/22 21:07 Oxygen Flow Rate (L/min) 5 Oxygen Delivery Method Nasal Cannula Weight: 89.811 kg Body Mass Index (BMI) 28.4 Intake & Output: Intake and Output for Last 24 Hours 01/18/22 01/19/22 01/20/22 23:59 23:59 23:59 Intake Total 480 / 480 640 / 640 200 / 200 Balance 480 / 480 640 / 640 200 / 200 Lab / Micro Data Result Diagrams: 01/20/22 06:14 01/20/22 06:14 Labs: Laboratory Results - last 24 hr 01/20/22 06:14: WBC 11.6 H, RBC 4.31 L, Hgb 12.9 L, Hct 38.6 L, MCV 89.6, MCH 29.9, MCHC 33.4, RDW Std Deviation 43.9, RDW Coeff of Alexandro 13.2, Plt Count 315, MPV 9.7, Immature Gran % (Auto) 0.700, Neut % (Auto) 79.4 H, Lymph % (Auto) 13.6 L, [place] % (Auto) 5.8, Eos % (Auto) 0.3, Baso % (Auto) 0.2, Absolute Neuts (auto) 9.3 H, Absolute Lymphs (auto) 1.58, Nucleated RBC % 0 01/20/22 06:14: Sodium 138, Potassium 4.3, Chloride 105, Carbon Dioxide 24.0, Anion Gap 9, BUN 16, Creatinine 0.73, Estim Creat Clear Calc 109.72, Est GFR (MDRD) Af Amer 140, Est GFR (MDRD) Non-Af 115, BUN/Creatinine Ratio 21.8 H, Glucose 108 H, Calcium 8.4 L Micro: Microbiology 01/18/22 15:20 Sputum, Expectorated/Coughed Gram Stain - Final 01/18/22 15:20 Sputum, Expectorated/Coughed Respiratory Culture - Preliminary Appears to be normal respiratory jon. Further studies to follow. 01/17/22 14:45 Blood Culture (Wb) - Anticubital Left Blood Culture - Preliminary No growth in 48 hours. 01/17/22 14:32 Blood Culture (Wb) - Anticubital Left Blood Culture - Preliminary No growth in 48 hours. 01/17/22 14:21 Urine, Clean Catch Streptococcus pneumoniae Antigen (M - Final 01/17/22 14:21 Urine, Clean Catch Legionella Antigen - Final 01/18/22 09:00 Stool Enteric Bacteriology - Final 01/18/22 09:00 Stool C. difficile DNA Amplification - Final 01/17/22 14:20 Nasal Secretion SARS-CoV-2 Antigen (Rapid) - Final Physical Exam Const alert and no apparent distress Constitutional Narrative: tachypneic. Resp normal respiratory effort, no retractions and no use of accessory muscles Cardio regular rate, regular rhythm, S1 normal heart sound and S2 normal heart sound GI normal to inspection, nondistended, normoactive bowel sounds, soft to palpation, non-tender and non-distended Extremity normal to inspection Assessment & Plan Assessment/Plan (1) Acute respiratory failure with hypoxia: PLAN: Secondary to COVID-19 and pulmonary emboli Currently patient is stable on nasal cannula. Given the history of COVID-19 and being unvaccinated is unclear to me if this is the worse or if he may continue to worsen. I told the patient and his daughter over the phone and that we would monitor him in the hospital for the next couple days to ensure that he is improving. The patient can remain stable and we can consider discharging him home. The complicating factor is that [place] is from [place]. He does have family that he can stay with so it may be advisable for him to return home with family particular if he requires oxygen. Currently on 6 L nasal cannula. Wean oxygen as tolerated Add incentive spirometer Furosemide challenge (2) COVID-19: PLAN: Onset is January 04 The patient is natural history is consistent with what we are seeing with the delta variant in unvaccinated patients. And this was explained to the patient. Patient is out of the window for remdesivir Continue with dexamethasone If patient worsens, consider infectious disease consult to see if we can use tocilizumab. I did speak with pharmacy and we do have several vials. Rapid as well as PCR for COVID were negative here. But patient had confirmed testing in [place]. I do still feel that his changes are consistent with COVID-19 but will evaluate for any secondary bacterial infections. (3) Pulmonary emboli: PLAN: Most likely due to COVID-19 but his recent travel may also be contributing factor from [place]. He does not smoke or take any hormone therapy. Start him on apixaban. I would anticipate 6-month course of anticoagulation as patient has no prior history of VTE. Follow-up echocardiogram for any evidence of cardiac strain. Patient asked about systemic anticoagulation with heparin drip or enoxaparin as this was brought up to him by his acquaintances who are physicians who inquired about it.. I told patient that he is being properly anticoagulated with anticoagulation and given his hemodynamics stability, despite his hypoxia, I feel that is appropriate for the 10 a inhibitor with apixaban. PLAN: Plan VTE prophylaxis not indicated as he is already on anticoagulation. Discussed with the patient's daughter over the phone. Charges/Coding Visit Charges Inpatient E&M: 45685 Subs Hosp L2
[2022-01-20] MEDS: Acetaminophen 325 MG Tablet 650 MG PO ×2 (09:00→21:31)
[2022-01-20] MEDS: APIXABAN 5 MG TABLET 10 MG PO ×2 (09:01→21:30)
[2022-01-20] MEDS: 0.9% Saline Lock 10 ML Syringe IV (09:01)
[2022-01-20] MEDS: guaiFENesin 1,200 MG Tablet 1200 MG PO ×2 (09:01→21:30)
[2022-01-20] MEDS: dexAMETHasone 10 MG/ML Vial 6 MG IV (09:02)
[2022-01-20] MEDS: Furosemide 40 MG Tablet PO (09:02)
[2022-01-20] MEDS: Menthol/Lanolin/Calamine/Znox 113 GM Tube 1 APPLIC TOPICAL ×2 (09:02→21:31)
--- NOTE | 2022-01-20 10:01 | CASEMGMT ---
Addendum entered by Arpita Hampton 01/20/22 13:35: Pt will need portable concentrator to be able to fly home and call to [facility] at [facility] and he states d/t extenuating circumstances, they would be able to provide pt with one. Per [facility], they have one in stock and they only go up to 5L. Order forms for home oxygen and POC will both need completed at discharge. Green sheet updated. Pt also provided with pulse ox at discharge. Pt voices no further questions/concerns/needs. Keesha CARRASCO CM Original Note: Per [facility] website, the only DME provider that is local and near pt in [place] is [facility]. Green sheet left on chart for home oxygen testing. Pt also provided with pulse ox at discharge. Keesha CARRASCO CM
[2022-01-21] VITALS (10 sets, daily range): BP systolic 120–128; BP diastolic 70–79; PULSE 56–73; RESP 18–20; TEMP 36.4–36.6; O2SAT 92–98
[2022-01-21] MEDS: Benzonatate 100 MG Capsule PO (02:35)
[2022-01-21] MEDS: Acetaminophen 325 MG Tablet 650 MG PO ×2 (06:02→22:01)
--- NOTE | 2022-01-21 08:36 | PCM.PN.HOSP ---
Subjective Subjective Difficulty with deep respirations. Using IS and flutter valve and sets a timer to reminding him. coughing up some ph Objective Data Objective Data Vital Signs: Vital Signs Temp Pulse Resp BP Pulse Ox O2 Del Method O2 Flow Rate 36.6 C 71 18 120/74 92 Nasal Cannula 5 01/21/22 03:00 01/21/22 07:00 01/21/22 03:00 01/21/22 03:00 01/21/22 03:00 01/21/22 08:06 01/21/22 08:06 FiO2 91 01/19/22 21:07 Oxygen Flow Rate (L/min) [ 10 AMBULATING with Oxygen #3] Oxygen Flow Rate (L/min) [ 8 AMBULATING with Oxygen #2] Oxygen Flow Rate (L/min) [ 5 AMBULATING with Oxygen #1] Oxygen Flow Rate (L/min) [At 5 REST with Oxygen] Oxygen Flow Rate (L/min) 5 Oxygen Delivery Method Nasal Cannula Weight: 89.811 kg Body Mass Index (BMI) 28.4 Intake & Output: Intake and Output for Last 24 Hours 01/19/22 01/20/22 01/21/22 23:59 23:59 23:59 Intake Total 640 / 640 860 / 860 200 / 200 Balance 640 / 640 860 / 860 200 / 200 Lab / Micro Data Result Diagrams: 01/20/22 06:14 01/20/22 06:14 Micro: Microbiology 01/18/22 15:20 Sputum, Expectorated/Coughed Gram Stain - Final 01/18/22 15:20 Sputum, Expectorated/Coughed Respiratory Culture - Preliminary 01/17/22 14:45 Blood Culture (Wb) - Anticubital Left Blood Culture - Preliminary No growth in 48 hours. 01/17/22 14:32 Blood Culture (Wb) - Anticubital Left Blood Culture - Preliminary No growth in 48 hours. 01/17/22 14:21 Urine, Clean Catch Streptococcus pneumoniae Antigen (M - Final 01/17/22 14:21 Urine, Clean Catch Legionella Antigen - Final 01/18/22 09:00 Stool Enteric Bacteriology - Final 01/18/22 09:00 Stool C. difficile DNA Amplification - Final 01/17/22 14:20 Nasal Secretion SARS-CoV-2 Antigen (Rapid) - Final Physical Exam Const alert and no apparent distress Neck no lymphadenopathy Resp normal respiratory effort and no retractions Cardio regular rate, regular rhythm, S1 normal heart sound and S2 normal heart sound GI normal to inspection, nondistended, normoactive bowel sounds, soft to palpation and non-tender Extremity normal to inspection Assessment & Plan Assessment/Plan (1) Acute respiratory failure with hypoxia: PLAN: Secondary to COVID-19 and pulmonary emboli Currently patient is stable on nasal cannula. Given the history of COVID-19 and being unvaccinated is unclear to me if this is the worse or if he may continue to worsen. I told the patient and his daughter over the phone and that we would monitor him in the hospital for the next couple days to ensure that he is improving. The patient can remain stable and we can consider discharging him home. The complicating factor is that he is from out of [place]. He does have family that he can stay with so it may be advisable for him to return home with family particular if he requires oxygen. Currently on 6 L nasal cannula. Wean oxygen as tolerated Add incentive spirometer Furosemide challenge (2) COVID-19: PLAN: Onset is January 04 The patient is natural history is consistent with what we are seeing with the delta variant in unvaccinated patients. And this was explained to the patient. Patient is out of the window for remdesivir Continue with dexamethasone If patient worsens, consider infectious disease consult to see if we can use tocilizumab. I did speak with pharmacy and we do have several vials. Rapid as well as PCR for COVID were negative here. But patient had confirmed testing in [place]. I do still feel that his changes are consistent with COVID-19 but will evaluate for any secondary bacterial infections. (3) Pulmonary emboli: PLAN: Most likely due to COVID-19 but his recent travel may also be contributing factor from [place]. He does not smoke or take any hormone therapy. Start him on apixaban. I would anticipate 6-month course of anticoagulation as patient has no prior history of VTE. Follow-up echocardiogram for any evidence of cardiac strain. Patient asked about systemic anticoagulation with heparin drip or enoxaparin as this was brought up to him by his acquaintances who are physicians who inquired about it.. I told patient that he is being properly anticoagulated with anticoagulation and given his hemodynamics stability, despite his hypoxia, I feel that is appropriate for the 10 a inhibitor with apixaban. PLAN: Plan VTE prophylaxis not indicated as he is already on anticoagulation. Disposition: To be determined. We will be able to get the patient a portable oxygen concentrator but those only go up to 5 L/min. The plan patient's plan is to fly back from [place] to [place] [facility]. We will have a wheelchair to take in the airport in [place] and then from [place]. Patient's oxygenation will need to be 5 L or less, preferably less. Patient was very winded today when he went up to the bathroom. Patient continues to need more time here in the hospital. Greater than 40 minutes of which greater than 50% time was constipation at bedside about the oxygen and getting on flights. He also mentioned he could to be driven but that likely would more than exhaustive battery life of the portable tank and unclear if that could be adequately charged while he was in the car. So does seem that fly would be the most viable option for him. Charges/Coding Visit Charges Inpatient E&M: 19193 Subs Hosp L3
[2022-01-21] MEDS: APIXABAN 5 MG TABLET 10 MG PO ×2 (08:58→22:03)
[2022-01-21] MEDS: dexAMETHasone 10 MG/ML Vial 6 MG IV (08:58)
[2022-01-21] MEDS: Furosemide 40 MG Tablet PO (08:58)
[2022-01-21] MEDS: guaiFENesin 1,200 MG Tablet 1200 MG PO ×2 (08:58→22:03)
[2022-01-21] MEDS: 0.9% Saline Lock 10 ML Syringe IV (08:58)
[2022-01-21] MEDS: Menthol/Lanolin/Calamine/Znox 113 GM Tube 1 APPLIC TOPICAL ×2 (09:02→22:03)
[2022-01-22] VITALS (11 sets, daily range): BP systolic 115–138; BP diastolic 60–76; PULSE 56–85; RESP 18–28; TEMP 36.3–36.6; O2SAT 93–97
[2022-01-22] MEDS: Benzonatate 100 MG Capsule PO (00:48)
[2022-01-22] MEDS: Acetaminophen 325 MG Tablet 650 MG PO ×2 (05:27→21:04)
--- NOTE | 2022-01-22 08:04 | PN.HOSP_ITS ---
Subjective Subjective Still getting winded with walking but his resting oxygenation is down to 4 L. His been continue to be compliant with incentive spirometer and Acapella valve. Nursing recommending he be on 8 L of oxygen when he is up and ambulating. Objective Data Objective Data Vital Signs: Vital Signs Temp Pulse Resp BP Pulse Ox O2 Del Method O2 Flow Rate 36.5 C L 64 20 H 121/72 H 97 Nasal Cannula 5 01/22/22 07:50 01/22/22 07:50 01/22/22 07:50 01/22/22 07:50 01/22/22 07:50 01/22/22 07:50 01/22/22 07:50 FiO2 91 01/19/22 21:07 Oxygen Flow Rate (L/min) [ 10 AMBULATING with Oxygen #3] Oxygen Flow Rate (L/min) [ 8 AMBULATING with Oxygen #2] Oxygen Flow Rate (L/min) [ 5 AMBULATING with Oxygen #1] Oxygen Flow Rate (L/min) [At 5 REST with Oxygen] Oxygen Flow Rate (L/min) 5 Oxygen Delivery Method Nasal Cannula Weight: 89.811 kg Body Mass Index (BMI) 28.4 Intake & Output: Intake and Output for Last 24 Hours 01/20/22 01/21/22 01/22/22 23:59 23:59 23:59 Intake Total 860 / 860 1320 / 1320 Balance 860 / 860 1320 / 1320 Lab / Micro Data Result Diagrams: 01/20/22 06:14 01/20/22 06:14 Micro: Microbiology 01/18/22 15:20 Sputum, Expectorated/Coughed Gram Stain - Final 01/18/22 15:20 Sputum, Expectorated/Coughed Respiratory Culture - Final 01/17/22 14:45 Blood Culture (Wb) - Anticubital Left Blood Culture - Preliminary No growth in 48 hours. 01/17/22 14:32 Blood Culture (Wb) - Anticubital Left Blood Culture - Preliminary No growth in 48 hours. 01/17/22 14:21 Urine, Clean Catch Streptococcus pneumoniae Antigen (M - Final 01/17/22 14:21 Urine, Clean Catch Legionella Antigen - Final 01/18/22 09:00 Stool Enteric Bacteriology - Final 01/18/22 09:00 Stool C. difficile DNA Amplification - Final 01/17/22 14:20 Nasal Secretion SARS-CoV-2 Antigen (Rapid) - Final Physical Exam Const alert and no apparent distress Resp normal respiratory effort and no retractions Resp Narrative: Crackles bilaterally Cardio regular rate, regular rhythm, S1 normal heart sound and S2 normal heart sound GI normal to inspection, nondistended, normoactive bowel sounds, soft to palpation, non-tender and non-distended Extremity normal to inspection Neuro oriented x3 Assessment & Plan Assessment/Plan (1) Acute respiratory failure with hypoxia: PLAN: Secondary to COVID-19 and pulmonary emboli Currently patient is stable on nasal cannula. Given the history of COVID-19 and being unvaccinated is unclear to me if this is the worse or if he may continue to worsen. I told the patient and his daughter over the phone and that we would monitor him in the hospital for the next couple days to ensure that he is improving. The patient can remain stable and we can consider discharging him home. The complicating factor is that he is from out of state. He does have family that he can stay with so it may be advisable for him to return home with family particular if he requires oxygen. Currently on 5 L nasal cannula. Wean oxygen as tolerated Add incentive spirometer Continue furosemide challenge (2) COVID-19: PLAN: Onset is January 04 The patient is natural history is consistent with what we are seeing with the delta variant in unvaccinated patients. And this was explained to the patient. Patient is out of the window for remdesivir Continue with dexamethasone If patient worsens, consider infectious disease consult to see if we can use tocilizumab. I did speak with pharmacy and we do have several vials. Rapid as well as PCR for COVID were negative here. But patient had confirmed testing in [place]. I do still feel that his changes are consistent with COVID-19 but will evaluate for any secondary bacterial infections. (3) Pulmonary emboli: PLAN: Most likely due to COVID-19 but his recent travel may also be contributing factor from [place]. He does not smoke or take any hormone therapy. Start him on apixaban. I would anticipate 6-month course of anticoagulation as patient has no prior history of VTE. Follow-up echocardiogram for any evidence of cardiac strain. Patient asked about systemic anticoagulation with heparin drip or enoxaparin as this was brought up to him by his acquaintances who are physicians who inquired about it.. I told patient that he is being properly anticoagulated with anticoagulation and given his hemodynamics stability, despite his hypoxia, I feel that is appropriate for the 10 a inhibitor with apixaban. PLAN: Plan VTE prophylaxis not indicated as he is already on anticoagulation. Disposition: To be determined. We will be able to get the patient a portable oxygen concentrator but those only go up to 5 L/min. The plan patient's plan is to fly back from [place] to [facility]. We will have a wheelchair to take in the airport in [place] and then from [place]. Patient's oxygenation will need to be 5 L or less, preferably less. Patient does have the option of having a van that will pick him up and drive 30 hours back to [place]. I feel plane trip would be the safer option as a require less time. Patient apprehensive about going to his mom's because of the current condition that is in. His mother lives locally. Charges/Coding Visit Charges Inpatient E&M: 45929 Subs Hosp L2
[2022-01-22] MEDS: Menthol/Lanolin/Calamine/Znox 113 GM Tube 1 APPLIC TOPICAL ×2 (10:16→21:00)
[2022-01-22] MEDS: dexAMETHasone 10 MG/ML Vial 6 MG IV (10:17)
[2022-01-22] MEDS: Furosemide 40 MG Tablet PO (10:18)
[2022-01-22] MEDS: guaiFENesin 1,200 MG Tablet 1200 MG PO ×2 (10:18→21:00)
[2022-01-22] MEDS: APIXABAN 5 MG TABLET 10 MG PO ×2 (10:18→20:59)
[2022-01-22] MEDS: 0.9% Saline Lock 10 ML Syringe IV ×2 (10:23→16:37)
[2022-01-23] VITALS (10 sets, daily range): BP systolic 124–138; BP diastolic 72–75; PULSE 50–81; RESP 16–20; TEMP 36.6–36.7; O2SAT 86–97
[2022-01-23] MEDS: Benzonatate 100 MG Capsule PO (04:01)
[2022-01-23] MEDS: Acetaminophen 325 MG Tablet 650 MG PO ×2 (04:06→20:59)
[2022-01-23 06:15] LABS: Absolute Lymphocyte Count 1.52 X10^3/uL (0.83-4.51); Absolute Neutrophil Count 8.2 X10^3/uL (2.0-7.7); Basophil# 0.03 X10^3/uL; Basophil% 0.3 % (0-1); Eosinophil# 0.09 X10^3/uL; Eosinophils% 0.9 % (0-5); Hematocrit 39.3 % (40-54); Hemoglobin 13.2 g/dL (13.0-16.5); Lymphocyte # 1.52 X10^3/ul (0.83-4.51); Lymphocyte % 14.5 % (19-41); Mean Corp Hgb Conc 33.6 g/dL (32-36); Mean Corpuscular Hgb 30.4 pg (27.0-32.0); Mean Corpuscular Volume 90.6 fL (80-94); Mean Platelet Vol. 9.5 fl (6.2-12.0); Monocyte# 0.52 X10^3/uL; NRBC Flagged by Analyzer 0 % (0-5); Neutrophil # 8.18 X10^3/uL (2.7-7.7); Platelet Count 325 K/mm3 (150-450); RBC Distribution Width CV 12.7 % (11.6-14.6); RBC Distribution Width SD 42.2 fl (35.1-43.9); Red Blood Count 4.34 M/mm3 (4.6-6.2); White Blood Count 10.5 K/mm3 (4.4-11.0)
[2022-01-23 06:47] LABS: Anion Gap 7 (5-15); BUN 15 mg/dL (7-18); BUN/Creat Ratio 26.5 RATIO (10-20); Calcium,Total 8.5 mg/dL (8.5-10.1); Chloride 102 mmol/L (98-107); Creatinine, Serum 0.57 mg/dL (0.70-1.30); EST Glomerular Filtration Rate 155 mL/min (>60); Est Glom Filt Rate - Afr Amer 188 mL/min (>60); Estimated Creatinine Clearance 140.52 ml/min; Glucose 120 mg/dL (74-106); Potassium 4.4 mmol/L (3.5-5.1); Sodium Level 134 mmol/L (136-145)
[2022-01-23] MEDS: Furosemide 40 MG Tablet PO (09:57)
[2022-01-23] MEDS: guaiFENesin 1,200 MG Tablet 1200 MG PO ×2 (09:57→21:00)
[2022-01-23] MEDS: APIXABAN 5 MG TABLET 10 MG PO ×2 (09:57→21:00)
[2022-01-23] MEDS: Menthol/Lanolin/Calamine/Znox 113 GM Tube 1 APPLIC TOPICAL ×2 (09:58→20:59)
--- NOTE | 2022-01-23 11:20 | NURSING ---
pt able to walk 25feet on 4l and sats 4l. pt sob but did well. only dropped on return to room at 86% on 4l at 50ft. took 3 min to come up to 89 and needed 6l to do so. dr. liang aware and planning on dc'ing home [place]
[2022-01-23] MEDS: dexAMETHasone 4 MG Tablet 6 MG PO (12:29)
--- NOTE | 2022-01-23 15:04 | CASEMGMT ---
Per Ana CARRASCO, pt needs 4L at rest and 5L w/ exertion. Orders faxed to [facility] for home oxygen and POC. Call to Toan at [facility] to notify, voices understanding and he states he will be getting [facility]hold [facility] [place] to verify that they will accept order and will f/u with pt to set up home oxygen. Pt updated on all, voices understanding. CM to follow. Keesha CARRASCO CM
--- NOTE | 2022-01-23 20:59 | PCM.PN.HOSP ---
Subjective Subjective Patient was seen and examined today, his respiratory status continues to be stable on nasal cannula oxygen, he is requiring approximately 6 L on walking, 4 L at rest. We are trying to make arrangements to provide him a portable oxygen concentrator so he can return to [place]. Patient does not complain of any fevers or chills at this time Objective Data Objective Data Vital Signs: Vital Signs Temp Pulse Resp BP Pulse Ox O2 Del Method O2 Flow Rate 97.9 F 81 18 136/72 H 92 Nasal Cannula 4 01/23/22 16:00 01/23/22 19:00 01/23/22 16:33 01/23/22 16:00 01/23/22 16:00 01/23/22 16:33 01/23/22 16:33 FiO2 91 01/19/22 21:07 Oxygen Flow Rate (L/min) [ 10 AMBULATING with Oxygen #3] Oxygen Flow Rate (L/min) [ 5 AMBULATING with Oxygen #2] Oxygen Flow Rate (L/min) [ 4 AMBULATING with Oxygen #1] Oxygen Flow Rate (L/min) [At 4 REST with Oxygen] Oxygen Flow Rate (L/min) 4 Oxygen Delivery Method Nasal Cannula Weight: 89.811 kg Body Mass Index (BMI) 28.4 Intake & Output: Intake and Output for Last 24 Hours 01/21/22 01/22/22 01/23/22 23:59 23:59 23:59 Intake Total 1320 / 1320 960 / 960 Balance 1320 / 1320 960 / 960 Lab / Micro Data Result Diagrams: 01/23/22 05:40 01/23/22 05:40 Labs: Laboratory Results - last 24 hr 01/23/22 05:40: WBC 10.5, RBC 4.34 L, Hgb 13.2, Hct 39.3 L, MCV 90.6, MCH 30.4, MCHC 33.6, RDW Std Deviation 42.2, RDW Coeff of Alexandro 12.7, Plt Count 325, MPV 9.5, Immature Gran % (Auto) 1.300 H, Neut % (Auto) 78.0 H, Lymph % (Auto) 14.5 L, [place] % (Auto) 5.0, Eos % (Auto) 0.9, Baso % (Auto) 0.3, Absolute Neuts (auto) 8.2 H, Absolute Lymphs (auto) 1.52, Nucleated RBC % 0 01/23/22 05:40: Sodium 134 L, Potassium 4.4, Chloride 102, Carbon Dioxide 25.0, Anion Gap 7, BUN 15, Creatinine 0.57 L, Estim Creat Clear Calc 140.52, Est GFR (MDRD) Af Amer 188, Est GFR (MDRD) Non-Af 155, BUN/Creatinine Ratio 26.5 H, Glucose 120 H, Calcium 8.5 Micro: Microbiology 01/17/22 14:45 Blood Culture (Wb) - Anticubital Left Blood Culture - Final No growth in 5 days. 01/17/22 14:32 Blood Culture (Wb) - Anticubital Left Blood Culture - Final No growth in 5 days. 01/18/22 15:20 Sputum, Expectorated/Coughed Gram Stain - Final 01/18/22 15:20 Sputum, Expectorated/Coughed Respiratory Culture - Final 01/17/22 14:21 Urine, Clean Catch Streptococcus pneumoniae Antigen (M - Final 01/17/22 14:21 Urine, Clean Catch Legionella Antigen - Final 01/18/22 09:00 Stool Enteric Bacteriology - Final 01/18/22 09:00 Stool C. difficile DNA Amplification - Final 01/17/22 14:20 Nasal Secretion SARS-CoV-2 Antigen (Rapid) - Final Physical Exam Const alert, oriented x3, no apparent distress and average body habitus General Appearance: cooperative, well kempt and well developed Orientation / Consciousness: awake, oriented to person, oriented to place and oriented to time HEENT normocephalic and moist oral mucous membranes Eyes PERRL, EOMs intact bilaterally and conjunctivae normal Neck nuchal rigidity, supple, no JVD, thyroid normal and no carotid bruits General: trachea midline Resp normal respiratory effort Auscultation: crackles diffuse (Diffuse inspiratory rales are noted over the lower lung ojeda bilaterally); Negative for rhonchi or wheezes Cardio regular rate, regular rhythm, no murmurs, no rub and no gallops GI normal to inspection, nondistended, normoactive bowel sounds, soft to palpation, non-tender and non-distended Extremity no clubbing, cyanosis or edema Skin no rashes or lesions noted General Skin Exam: no breakdown Neuro oriented x3, CN's II-XII intact bilaterally, no focal motor deficits and no sensory deficits noted Sensorium / Orientation: awake and alert Speech: speech normal Psych affect normal Assessment & Plan Assessment/Plan (1) COVID-19: PLAN: Plan 1. Acute hypoxic respiratory failure secondary to COVID-19 pneumonia and pulmonary emboli-continue present treatment at this time including Eliquis. #2 COVID-19 pneumonia-patient continues to be treated with dexamethasone #3 pulmonary emboli secondary to COVID-19 pneumonia-patient is on Eliquis #4 essential hypertension-patient is on lisinopril #5 hyperlipidemia-patient is on fenofibrate Discharge planning is working on providing the patient portable oxygen for return home to [place]. Charges/Coding Visit Charges Inpatient E&M: 32560 Subs Hosp L2
[2022-01-24] MEDS: Benzonatate 100 MG Capsule PO (02:34)
[2022-01-24] MEDS: Acetaminophen 325 MG Tablet 650 MG PO (02:34)
[2022-01-24 03:00] VITALS: PULSE 57
[2022-01-24 03:10] VITALS: BP 117/70; PULSE 57; RESP 20; TEMP 36.4; O2SAT 95
--- NOTE | 2022-01-24 08:30 | CASEMGMT ---
Addendum entered by Arpita Hampton 01/24/22 15:09: Call from Michelle at [facility] dept and she states that they will cover home oxygen thru [employer] but the POC is not a covered benefit. Call to Toan at [facility] and he is updated at this time but then states to this RN CM that they do not do self pay at all. They only take insurance coverage so they cannot provide the POC for pt at this time. Message left for supervisor cutting department at [facility] to call this RN CM back. This RN CM has placed calls to the following [employer] companies as pt is willing to pay out of pocket to get a POC to go home: [facility], [employer], [employer], [facility], [employer], and [employer]. None of these companies have an available POC for pt to buy/rent today. Call back to Michelle at [facility] to see if they have any other options and message left for her to call this RN CM back. Call to [employer] and they have an available larger POC with extended battery and possible extra battery in stock. They state pt can buy unit for $2900 or rent a POC for $300/month and Louise at [facility] states they would be ok with pt mailing unit back to them and will even provide him with a box and shipping label. Pt updated on all and provided with number to call [facility] and set up account/card. POC will be obtained from [facility] and provided to pt for discharge. Per Louise, it's a pulse device and if pt needs 4-5L then he will need to put it on 5-6L instead and pt is updated on this, voices understanding. Pt also to be sent home on [employer] and 30 day free trial card to be applied. Pt has provided pulse ox to take home with him. CM to follow to see if [facility] will provide 1 or 2 batteries for pt but per Louise, the one extended battery should last the first leg of flight. Pt aware of all and advised to be the last one on plane and 1st one off the plane, voices understanding. Pt voices no further questions/concerns/needs. [employer] will set up home oxygen once pt home and pt is aware that someone will need to be home to set up. [facility] aware [facility] home. S[place] RN CM Addendum entered by Arpita Hampton 01/24/22 14:41: Pt updated on all and is attempting to call customer service at [facility] to move things along. Keesha CARRASCO CM Addendum entered by Arpita Hampton 01/24/22 14:10: Call from Oscar at [facility] and she asks if rn progressive care was set up thru [facility] to coordinate pt care. This RN ZINA informed her that is not the process in [place] and nothing on the insurance card or website denotes that this needs to be done. Oscar aware that we have [employer] to provide oxygen and she states that they need to have an order from a [facility] physician and that there is a process to get this set up. She also states that a POC is not normal protocol for a pt and this RN ZINA advised her that is the same here but there are extenuating circumstances and she voices understanding. Oscar is aware that pt is set to fly out tomorrow am and she states this has been escalated at all levels. Toan at [facility] aware and is working on getting further batteries for pt. CM to follow. Keesha CARRASCO CM Addendum entered by Arpita Hampton 01/24/22 12:14: Spoke with Toan and he states [facility] has orders but he will call and have them forward to orders [place]. CM to follow. Keesha CARRASCO CM Addendum entered by Arpita Hampton 01/24/22 11:53: Call to Ju at [facility] and she is updated on pt situation. Ju states she will reach out to the people who will do the auth for [facility] to set up home oxygen. Ju's contact info: [phone]. Call to Toan at [facility] to see if orders were faxed to [employer] and message left with him at this time. CM to follow. Keesha CARRASCO CM Original Note: This RN ZINA received message from Toan at [facility] stating that [facility] would like to speak with LUNA IZAGUIRRE prior to approving [facility] for [employer] company. Number provided to [facility] and this RN CM attempted to call but their offices are closed. RN CM will attempt again at 1130 EST as they open at 0830 [place] time. Keesha CARRASCO CM
[2022-01-24] MEDS: APIXABAN 5 MG TABLET 10 MG PO (08:47)
[2022-01-24] MEDS: dexAMETHasone 4 MG Tablet 6 MG PO (08:48)
[2022-01-24] MEDS: Furosemide 40 MG Tablet PO (08:48)
[2022-01-24] MEDS: guaiFENesin 1,200 MG Tablet 1200 MG PO (08:48)
[2022-01-24 09:10] VITALS: BP 125/82; PULSE 75; RESP 18; TEMP 36.7; O2SAT 92
[2022-01-24 10:00] VITALS: RESP 18
[2022-01-24 14:56] VITALS: PULSE 84
[2022-01-24 15:19] VITALS: BP 122/78; PULSE 70; RESP 14; TEMP 36.6; O2SAT 93
--- NOTE | 2022-01-24 16:05 | DCINST_ITS ---
Discharge Instructions Diet Discharge Diet: No restrictions Activity Discharge Activity: Return to Normal Activity Weight Bearing Status: Weight bearing as tolerated Follow Up Care Test Results: Test results from this visit will be discussed in further detail at your follow- up appointment, if applicable. Discharge Plan Admission Admit Date/Time: 01/17/22 16:21 Primary Reason for Your Visit: covid-19, HYPOXIC RESPIRATORY FAILURE, PULMONARY EMBOLISM Attending Provider: Chriss Encarnacion Primary Care Provider: JAISON HAYWOOD Consulting Providers: Edy Mcrae Instructions Additional Instructions / Restrictions: OXYGEN AT 4 LITERS AT REST, 5 LITERS ON ACTIVITY, KEEP PULSE OX ABOVE 89% Discharge Orders/Prescriptions Prescriptions: New benzonatate 100 mg Capsule 100 mg PO TID PRN PRN (Reason: COUGH) Qty: 30 0RF Mucus Relief ER 1,200 mg Tablet Extended Release 12hr 1,200 mg PO BID Qty: 0 0RF Eliquis 5 mg Tablet 5 mg PO BID Qty: 60 0RF dexamethasone 2 mg tablet 6 mg PO DAILY Qty: 6 0RF Rx Instructions: START ON 01/24/22 Continued cetirizine 10 mg Tablet 10 mg PO DAILY lisinopril 10 mg tablet 10 mg PO DAILY fenofibrate 54 mg tablet 54 mg PO DAILY Referrals / Follow Up: JAISON HAYWOOD [Other] [facility],Out of [NON-STAFF] - Within 2 Weeks Disposition Disposition (needs filled in before D/C Order can be placed): Home, Self Care
--- NOTE | 2022-01-25 09:49 | DS.PCM_ITS ---
Providers Date of Admission: 01/17/22 Date of Discharge: 01/24/22 Primary Care Physician: JAISON HAYWOOD Reason For Visit: COVID Diagnosis Discharge Diagnosis (1) COVID-19: Status: Acute Code(s): U07.1 - COVID-19 Plan 1. Acute hypoxic respiratory failure secondary to COVID-19 pneumonia and pulmonary emboli #2 COVID-19 pneumonia #3 pulmonary emboli secondary to COVID-19 #4 essential hypertension #5 hyperlipidemia Medications at Discharge Home Medications cetirizine 10 mg tablet 10 mg PO DAILY allergies 01/17/22 fenofibrate 54 mg tablet 54 mg PO DAILY cholesterol 01/17/22 lisinopril 10 mg tablet 10 mg PO DAILY bp 01/17/22 apixaban 5 mg tablet (Eliquis) 5 mg PO BID #60 tabs 01/24/22 benzonatate 100 mg capsule 100 mg PO TID PRN PRN COUGH #30 caps 01/24/22 dexamethasone 2 mg tablet 6 mg PO DAILY #6 tabs 01/24/22 guaifenesin 1,200 mg tablet, extended release 12 hr (Mucus Relief ER) 1,200 mg PO BID #0 tabs 01/24/22 Hospital Course Operations None Procedures None Summary of Care Provided Minutes Spent on Discharge: 32 Hospital Course: This 61-year-old white male presented to the emergency room at [facility] with complaints of shortness of breath, patient had a history of COVID- 19 infection that was diagnosed on January 04, 2022, since that time, patient has steadily become more short of breath. Work-up in the emergency room included a CTA of the chest which showed bilateral pulmonary infiltrates consistent with COVID-19 as well as bilateral pulmonary emboli. Patient was admitted to PCU, he was placed on Decadron, he was anticoagulated, and his pulse ox was monitored. Patient required supplemental oxygen during his hospital stay. On 01/24/2022, patient was seen and examined:alert, oriented x3, no apparent distress and average body habitus General Appearance: cooperative, well kempt and well developed Orientation / Consciousness: awake, oriented to person, oriented to place and oriented to time HEENT normocephalic and moist oral mucous membranes Eyes PERRL, EOMs intact bilaterally and conjunctivae normal Neck nuchal rigidity, supple, no JVD, thyroid normal and no carotid bruits General: trachea midline Resp normal respiratory effort Auscultation: crackles diffuse (Diffuse inspiratory rales are noted over the lower lung ojeda bilaterally); Negative for rhonchi or wheezes Cardio regular rate, regular rhythm, no murmurs, no rub and no gallops GI normal to inspection, nondistended, normoactive bowel sounds, soft to palpation, non-tender and non-distended Extremity no clubbing, cyanosis or edema Skin no rashes or lesions noted General Skin Exam: no breakdown Neuro oriented x3, CN's II-XII intact bilaterally, no focal motor deficits and no sensory deficits noted Sensorium / Orientation: awake and alert Speech: speech normal Psych affect normal Patient was discharged home in stable condition on 01/24/2022, he required supplemental oxygen at 4 L at rest and 5 L on ambulation at the time of discharge from the hospital. This was set up for the patient. Weight / BMI Weight Weight: 89.811 kg Body Mass Index (BMI) 28.4 ABG / Lab / Microbiology Data Result Diagrams: 01/23/22 05:40 01/23/22 05:40 Microbiology: Microbiology 01/17/22 14:45 Blood Culture (Wb) - Anticubital Left Blood Culture - Final No growth in 5 days. 01/17/22 14:32 Blood Culture (Wb) - Anticubital Left Blood Culture - Final No growth in 5 days. 01/18/22 15:20 Sputum, Expectorated/Coughed Gram Stain - Final 01/18/22 15:20 Sputum, Expectorated/Coughed Respiratory Culture - Final 01/17/22 14:21 Urine, Clean Catch Streptococcus pneumoniae Antigen (M - Final 01/17/22 14:21 Urine, Clean Catch Legionella Antigen - Final 01/18/22 09:00 Stool Enteric Bacteriology - Final 01/18/22 09:00 Stool C. difficile DNA Amplification - Final 01/17/22 14:20 Nasal Secretion SARS-CoV-2 Antigen (Rapid) - Final D/C Instructions Discharge Diet: No restrictions Weight Bearing Status: Weight bearing as tolerated Meaningful Use Info Meaningful Use Diagnoses (Choose all that apply): None applicable Discharge Plan Admission Admit Date/Time: 01/17/22 16:21 Primary Reason for Your Visit: covid-19, HYPOXIC RESPIRATORY FAILURE, PULMONARY EMBOLISM Attending Provider: Chriss Encarnacion Primary Care Provider: JAISON HAYWOOD Consulting Providers: Edy Mcrae Instructions Additional Instructions / Restrictions: OXYGEN AT 4 LITERS AT REST, 5 LITERS ON ACTIVITY, KEEP PULSE OX ABOVE 89% Discharge Orders/Prescriptions Prescriptions: New benzonatate 100 mg Capsule 100 mg PO TID PRN PRN (Reason: COUGH) Qty: 30 0RF Mucus Relief ER 1,200 mg Tablet Extended Release 12hr 1,200 mg PO BID Qty: 0 0RF Eliquis 5 mg Tablet 5 mg PO BID Qty: 60 0RF dexamethasone 2 mg tablet 6 mg PO DAILY Qty: 6 0RF Rx Instructions: START ON 01/24/22 Continued cetirizine 10 mg Tablet 10 mg PO DAILY lisinopril 10 mg tablet 10 mg PO DAILY fenofibrate 54 mg tablet 54 mg PO DAILY Referrals / Follow Up: JAISON HAYWOOD [Other] [facility] Doctor,Out of [NON-STAFF] - Within 2 Weeks Disposition Disposition (needs filled in before D/C Order can be placed): Home, Self Care Charges/Coding Visit Charges Inpatient E&M: 61232 Disch Hosp
== END 2022-01-24 17:49 | disposition home or self-care (01) | DRG 177 ==
LOC: ED 15:02 → PCU 16:50
PROVIDERS: Emergency Provider Student in an Organized Health Care Education/Training Program; Visit Provider Internal Medicine
DX: U07.1 COVID-19 (principal); J12.82 Pneumonia due to coronavirus disease 2019; I26.99 Other pulmonary embolism without acute cor pulmonale; J96.01 Acute respiratory failure with hypoxia; E78.00 Pure hypercholesterolemia, unspecified; I10 Essential (primary) hypertension; E78.5 Hyperlipidemia, unspecified; Z79.899 Other long term (current) drug therapy; Z28.310 Unvaccinated for COVID-19; Z28.9 Immunization not carried out for unspecified reason
CPT/HCPCS: 36415; 71045; 71275; 80048; 80053; 81001; 84145; 84484; 85025; 87040; 87070; 87205; 87449; 87493; 87506; 87635; 87811; 93005; 93306; 94667; 99251; 99285; J7040; Q9967; A4216; G0463; U0003; U0005